=== PATIENT | male | born 1965 | race Caucasian/White ===

== ENCOUNTER 2017-10-14 19:31 | Emergency (ER) | payer MEDICAID ==
[~2017-10-14] VITALS: Ht 182.9 cm; Wt 81.6 kg
[~2017-10-14 19:31] MED LIST: CLIN300C85 PO; NO HOME MEDS
[2017-10-14 19:32] VITALS: BP 148/93
[2017-10-14] MEDS ORDERED: sulfamethoxazole/trimethoprim DS (800/160mg) tablet PO ONE (20:35)
[2017-10-14] MEDS ORDERED: HYDROcodone/acetaminophen 10/325mg tab PO ONE (20:35)
[2017-10-14] MEDS ORDERED: HYDR-565 PO (20:36)
[2017-10-14] MEDS ORDERED: SULF1TAB49 PO (20:36)
== END 2017-10-14 20:47 | disposition home or self-care (01) ==
LOC: ER 19:32
DX: L02.511 Cutaneous abscess of right hand (principal); F15.90 Other stimulant use, unspecified, uncomplicated; F17.200 Nicotine dependence, unspecified, uncomplicated
CPT/HCPCS: 20610; 73140; 99284; A6449

== ENCOUNTER 2018-06-21 17:53 | Emergency (ER) | payer MEDICAID, OTHER ==
[~2018-06-21] VITALS: Ht 182.9 cm; Wt 78.0 kg
[~2018-06-21 17:53] MED LIST changes: +CLIN-96 PO; -CLIN300C85 PO
--- NOTE | 2018-06-21 19:22 | NUR ---
family at bedside and report they think pt had a stroke 2 weeks ago. They report 2 weeks ago they suddenly noticed his mouth seemed to be drooping slightly and he was sluring his words slightly, he is slower to respond , but not confused, his gait is asymmetric and he seems to be leaning forward when walking. also his left hand bread packer is nonexistent, although he can lift the arm and has no drift. His right foot also has been swollen since that event. They report symptoms have not subsided and thaty they have been trying to get him to see the doctor, but he was refusing. today when he woke up his right arm was numb and he would not move it and he said it was "blue". These symptoms have resolved. This scared him and he conceded to coming in to be seen. He reports etoh daily, had whiskey today, occasional meth and opiate used (iv, snort and smokes). Says he falls "all the time". No evidence of any bruising or trauma to body or head. Denies any pain, but his right foot is sore when he walks on it only. He states he has no significant health problems and takes not medications. Family is supportive and appropriate.
--- NOTE | 2018-06-21 19:28 | NUR ---
dr. martin updated of pt and reading the note i just wrote. pt awaiting elidia isbell.
[2018-06-21 19:59] LABS: BASOPHILS # (AUTO) 0.1 X10'3 (0-0.2); EOSINOPHILS # (AUTO) 0.2 X10'3 (0-0.9); EOSINOPHILS % (AUTO) 2.8 % (0-6); HEMATOCRIT 39.1 % (42.0-52.0); HEMOGLOBIN 13.2 g/dl (14.0-17.9); MEAN CORPUSCULAR HGB CONC 33.8 g/dL (33.0-36.5); MONOCYTES # (AUTO) 0.6 X10'3 (0-0.9); NEUTROPHILS # (AUTO) 1.4 X10'3 (1.8-7.7); NEUTROPHILS % (AUTO) 22.9 % (42-75)
[2018-06-21 20:00] LABS: BASOPHILS % (AUTO) 1.6 % (0-1); LYMPHOCYTES # (AUTO) 3.9 X10'3 (1.1-4.8); MEAN CORPUSCULAR HEMOGLOBIN 31.7 PG (27.0-31.0); MEAN CORPUSCULAR VOLUME 93.7 FL (78-98); MONOCYTES % (AUTO) 9.7 % (2-12); PLATELET COUNT 258 X10'3 (140-440); RED BLOOD COUNT 4.17 X10'6 (4.70-6.10); RED CELL DISTRIBUTION WIDTH 12.5 % (11.5-14.5); WHITE BLOOD COUNT 6.1 X10'3 (4.5-11.0)
[2018-06-21 20:07] LABS: ALANINE AMINOTRANSFERASE 39 U/L (12-78); ALBUMIN 2.9 G/DL (3.4-5.0); ALBUMIN/GLOBULIN RATIO 0.8 (1.1-1.5); ALKALINE PHOSPHATASE 106 IU/L (46-116); ANION GAP 10 (8-16); ASPARTATE AMINO TRANSFERASE 36 U/L (10-37); BILIRUBIN,TOTAL 0.3 MG/DL (0.1-1.0); BLOOD UREA NITROGEN 10 MG/DL (7-18); BUN/CREATININE RATIO 16.9 (5.4-32.0); C-REACTIVE PROTEIN 0.35 MG/DL (0.0-0.5); CALCIUM 8.4 MG/DL (8.5-10.1); CHLORIDE 104 MMOL/L (99-107); CREATININE 0.59 MG/DL (0.60-1.10); ETHANOL 0.029 GM/DL (0.0-0.010); GLUCOSE 123 MG/DL (70-104); POTASSIUM 3.5 MMOL/L (3.5-5.1); SODIUM 140 MMOL/L (135-145); TOTAL CARBON DIOXIDE 25.6 MMOL/L (24-32); TOTAL PROTEIN 6.7 G/DL (6.4-8.2); eGFR > 90 ML/MIN
[2018-06-21 20:09] LABS: PARTIAL THROMBOPLASTIN TIME 29 SECONDS (22-32); PROTHROMBIN TIME 10.5 SECONDS (9.0-12.0)
--- NOTE | 2018-06-21 20:16 | NUR ---
relieving RN, pt is back from [place]
--- NOTE | 2018-06-21 21:28 | NUR ---
DR CORNELL REPORTS OK FOR PT TO EAT. PT'S REMAINS AT BEDSIDE. PT IS PLEASANT AND COOPERATIVE AND DENIES ANY NEEDS AT THIS TIME OTHER THAT TO EAT. GIVEN SNACKS AND WATER AND JUICE.
[2018-06-21 22:40] VITALS: BP 122/69
== END 2018-06-21 22:41 | disposition home or self-care (01) ==
LOC: ER 17:54
DX: G56.31 Lesion of radial nerve, right upper limb (principal); F15.90 Other stimulant use, unspecified, uncomplicated; Z98.890 Other specified postprocedural states; Z88.8 Allergy status to other drugs, medicaments and biological substances; Z79.899 Other long term (current) drug therapy
CPT/HCPCS: 29125; 36415; 70450; 71045; 80053; 80320; 85025; 85610; 85651; 85730; 86140; 93005; 99284

== ENCOUNTER 2020-08-04 12:39 | Emergency (ER) | payer MEDICAID ==
[~2020-08-04] VITALS: Ht 185.4 cm; Wt 84.1 kg
[2020-08-04 13:32] VITALS: BP 128/72
[2020-08-04] MEDS ORDERED: GABA300C PO (15:18)
== END 2020-08-04 15:49 | disposition home or self-care (01) ==
LOC: ER 12:40
DX: F10.10 Alcohol abuse, uncomplicated (principal); F15.90 Other stimulant use, unspecified, uncomplicated; Z72.89 Other problems related to lifestyle; Z87.81 Personal history of (healed) traumatic fracture; Z79.899 Other long term (current) drug therapy; Z91.048 Other nonmedicinal substance allergy status; Y90.9 Presence of alcohol in blood, level not specified
CPT/HCPCS: 99283